=== PATIENT | female | born 1980 | race Asian ===

== ENCOUNTER 2017-08-31 19:15 | Emergency (ER) | payer MEDICAID ==
[2017-08-31 19:53] LABS: URINE BLOOD (Dip) POC Trace-intact (NEGATIVE); URINE GLUCOSE (Dip) POC Negative (NEGATIVE); URINE KETONES (Dip) POC Negative (NEGATIVE); URINE LEUKOCYTE EST (Dip) POC 1+ (NEGATIVE); URINE NITRITE (Dip) POC Negative (NEGATIVE); URINE TOTAL PROTEIN POC Negative (NEGATIVE)
== END 2017-08-31 20:30 | disposition home or self-care (01) ==
LOC: FTE 19:15
DX: N30.00 Acute cystitis without hematuria (principal)
CPT/HCPCS: 81003; 81025; 99283